=== PATIENT | male | born 1965 ===

== ENCOUNTER 2018-09-19 10:26 | Emergency (ER) | payer MEDICAID ==
[2018-09-19 10:30] VITALS: BMI 29.9
[2018-09-19 10:31] VITALS: BP 144/87; PULSE 65; RESP 20; TEMP 98.7; O2SAT 97
--- NOTE | 2018-09-19 11:08 | ED PDOC ---
HPI: General Adult Time Seen by Provider: 09/19/18 10:56 Chief Complaint (Nursing): Back Pain Chief Complaint (Provider): back pain History Per: Patient (53 y/o male here with right upper back pain x 1 month worse with movement and improved with ibuprofen/heating pad. Has had injury 2008 from fall downstairs with xrys done at that time noting arthritis.) Past Medical History Reviewed: Historical Data, Nursing Documentation, Vital Signs Vital Signs: Last Vital Signs Temp 98.7 F 09/19/18 10:30 Pulse 65 09/19/18 10:30 Resp 20 09/19/18 10:30 BP 144/87 09/19/18 10:30 Pulse Ox 97 09/19/18 10:30 - Family History Family History: States: No Known Family Hx - Home Medications Home Medications: Ambulatory Orders Medication Instructions Recorded Naproxen 375 mg PO Q8 PRN #21 tablet 09/19/18 diaZEpam [Valium] 5 mg PO Q8 PRN #2 tab 09/19/18 - Allergies Allergies/Adverse Reactions: Allergies Allergy/AdvReac Type Severity Reaction Status Date / Time No Known Allergies Allergy Verified 09/19/18 10:53 Review of Systems ROS Statement: Except As Marked, All Systems Reviewed And Found Negative Physical Exam - Reviewed Nursing Documentation Reviewed: Yes Vital Signs Reviewed: Yes - Physical Exam Appears: Positive for: Well, Non-toxic, No Acute Distress Head Exam: Positive for: ATRAUMATIC, NORMAL INSPECTION, NORMOCEPHALIC Skin: Positive for: Normal Color, Warm, DRY Eye Exam: Positive for: EOMI, Normal appearance, PERRL ENT: Positive for: Normal ENT Inspection Neck: Positive for: Normal, Painless ROM Cardiovascular/Chest: Positive for: Regular Rate, Rhythm. Negative for: Chest Non Tender (parathoracic region mild tenderness to touch) Respiratory: Positive for: CNT, Normal Breath Sounds Gastrointestinal/Abdominal: Positive for: Normal Exam, Soft Back: Positive for: Normal Inspection Extremity: Positive for: Normal ROM Neurological/Psych: Positive for: Awake, Alert, Normal Tone - Laboratory Results Urine dip results: Positive for: Blood (trace). Negative for: Leukocyte Esterase, Nitrate, Ketones, Glucose, Bilirubin, Protein - ECG O2 Sat by Pulse Oximetry: 97 - Progress ED Course And Treament: cxr: no acute disease Disposition - Clinical Impression Clinical Impression: Back strain - Patient ED Disposition Is Patient to be Admitted: No - Disposition Referrals: [facility] [Outside] Disposition: Routine/Home Disposition Time: 11:16 Condition: FAIR Prescriptions: diaZEpam [Valium] 5 mg PO Q8 PRN #2 tab PRN Reason: Muscle Spasm Naproxen 375 mg PO Q8 PRN #21 tablet PRN Reason: Pain, Moderate (4-7) Instructions: Muscle Strain (DC) Forms: [facility] ED School/Work Excuse
--- NOTE | 2018-09-19 11:38 | RAD ---
HISTORY: right upper back pain COMPARISON: None available. TECHNIQUE: Chest PA and lateral, 2 views FINDINGS: LUNGS: No focal consolidation. Please note that chest x-ray has limited sensitivity for the detection of pulmonary masses. PLEURA: No significant pleural effusion identified. No definite pneumothorax . CARDIOVASCULAR: Heart size appears top normal. No atherosclerotic calcification present. OSSEOUS STRUCTURES: No acute osseous abnormality identified. VISUALIZED UPPER ABDOMEN: Unremarkable. OTHER FINDINGS: None. IMPRESSION: No acute findings identified.
== END 2018-09-19 12:09 | disposition home or self-care (01) ==
LOC: H.ER 10:26
DX: S29.012A Strain of muscle and tendon of back wall of thorax, initial encounter (principal); W10.9XXA Fall (on) (from) unspecified stairs and steps, initial encounter

== ENCOUNTER 2018-10-26 09:31 | Day surgery (SDC) | payer MEDICAID ==
[2018-10-26] MEDS ORDERED: Lactated Ringer's 500 ML IV ONE (09:44)
[2018-10-26 09:54] VITALS: BMI 32.1
[2018-10-26] MEDS ORDERED: Etomidate 20 mg/10ml Inj IV ONE (10:05)
[2018-10-26] MEDS ORDERED: Midazolam 2 MG/2 ML VIAL ONE (10:05)
[2018-10-26] MEDS ORDERED: Propofol 10 mg/ml Inj (20 ML) ONE (10:06)
[2018-10-26 10:30] VITALS: TEMP 97.7
[2018-10-26 10:44] VITALS: BP 138/78; PULSE 60; RESP 15; O2SAT 97
== END 2018-10-26 11:05 | disposition home or self-care (01) ==
LOC: H.ENDO 09:31
PROVIDERS: ATTEND Internal Medicine Gastroenterology
DX: Z12.11 Encounter for screening for malignant neoplasm of colon (principal)
CPT/HCPCS: 45378; J2001; J2250; J2704; J7120